=== PATIENT | female | born 1965 | race Two or more races ===

== ENCOUNTER → 2024-08-16 | Outpatient (CLI) | payer MEDICAID, SELFPAY ==
--- NOTE | 2024-08-16 13:00 | XR_ITS ---
Examination: Retroperitoneal ultrasound, complete Technique: Multiple high resolution grayscale images of the retroperitoneum obtained, including kidneys and bladder. Exam date and time:August 16, 2024 1308 hours INDICATIONS: History kidney stones flank pain months FINDINGS: Right kidney 10.8 x 7.4 x 7.1 cm cortex 1.7 cm Left kidney 10.8 x 4.9 x 7.2 cm renal cortex 2.0 cm Moderate bilateral renal parenchymal scar formation No hydronephrosis or renal calculi No bladder mass or bladder calculi bladder prevoid volume 82 cc IMPRESSION: Moderate bilateral renal parenchymal scar formation
== END | disposition home or self-care (01) ==
PROVIDERS: PCP Nurse Practitioner Family; Referring Provider Urology; Visit Provider Urology
DX: N28.89 Other specified disorders of kidney and ureter (principal)
CPT/HCPCS: 76770

== ENCOUNTER → 2025-01-28 | Outpatient (BNVA) | payer MEDICAID, SELFPAY | END | disposition home or self-care (01) | PROVIDERS: PCP Internal Medicine; Referring Provider Internal Medicine; Visit Provider Physician Assistant | DX: R10.9 Unspecified abdominal pain (principal); Z87.442 Personal history of urinary calculi; E11.9 Type 2 diabetes mellitus without complications; I10 Essential (primary) hypertension; E66.9 Obesity, unspecified; Z68.31 Body mass index [BMI] 31.0-31.9, adult; Z87.891 Personal history of nicotine dependence | CPT/HCPCS: 81003; 99212; G0463 ==

== ENCOUNTER → 2025-04-08 | Outpatient (CLI) | payer MEDICAID, SELFPAY ==
--- NOTE | 2025-04-08 14:15 | XR_ITS ---
Exam: MRI knee without contrast, right complete Date and time of exam: April 08, 2025, 1437 hours INDICATIONS: Right knee pain beginning one year ago joint clicking instability post injury Technique: Multiple axial, coronal, and sagittal sections on the knee have been obtained. T2-Weighted sagittal, fat-suppressed images, TR 3,500, TE 62, T2 weighted coronal fat-saturated images, TR 3,500, TE 62 Proton density sagittal sections, TR 1800, TE 31. T-1 weighted coronal images, TR 524, TE 13.0 Findings: Medial meniscus anterior horn intact. Medial meniscus, body is horizontal linear tear communicating inferior articular surface. Posterior horn medial meniscus horizontal linear tear communicating inner margin. Lateral meniscus anterior horn is intact Lateral meniscus, body is intact Posterior horn lateral meniscus is intact Anterior cruciate ligament moderately attenuated Posterior cruciate ligament appears intact. Knee effusion is small. Quadriceps and patellar tendons appear intact. There is no evidence of tendinosis. Inflammatory change or fracture of Hoffa's fat pad is not seen. Medial patellar facet demonstrates moderate thinning. Lateral patellar facet cartilage demonstrates moderate thinning. Trochlear cartilage demonstrates moderate thinning. Marrow signal adequate. Medial collateral ligament appears intact. No meniscocapsular separation is seen. Illiotibial band and fibular collateral ligament are intact. Biceps femoris tendons appear intact. Medial femoral condylar articular cartilage demonstrates severe thinning. Lateral femoral condylar articular cartilage demonstratesmoderate thinning. Tibial plateau cartilage demonstrates medial thinning. Impression: Horizontal linear tears body and posterior horn medial meniscus Moderate attenuation anterior cruciate ligament
== END | disposition home or self-care (01) ==
LOC: SMRI 13:54
PROVIDERS: PCP Student in an Organized Health Care Education/Training Program; Referring Provider Orthopaedic Surgery; Visit Provider Orthopaedic Surgery
DX: S83.241A Other tear of medial meniscus, current injury, right knee, initial encounter (principal); X58.XXXA Exposure to other specified factors, initial encounter; M25.861 Other specified joint disorders, right knee
CPT/HCPCS: 73721

== ENCOUNTER 2025-05-13 12:45 | Day surgery (SDC) | payer MEDICAID, SELFPAY ==
--- NOTE | 2025-05-09 09:26 | EKG_ITS ---
[facility] Test Date: 2025-05-09 Pat Name: VENUS KEITH Department: Room: - Gender: Female Field Recruiter: CAROLINE : 1965 Requested By: Paulino Juarez Order Number: [id number] Reading MD: Paulino Juarez Measurements Intervals [place] Rate: 63 P: 42 MT: 141 QRS: 23 QRSD: 88 T: 19 QT: 387 QTc: 397 Interpretive Statements SINUS RHYTHM No previous ECG available for comparison /[id number]/S0/[id number]
[2025-05-09 09:28] VITALS: BMI 30.4
[2025-05-09 09:40] VITALS: BMI 30.4
[2025-05-09 11:01] LABS: Basophils # (Auto) 0.1 Thou/mm3 (0.0-0.2); Basophils % (Auto) 1 % (0-2.5); Eosinophils # (Auto) 0.2 Thou/mm3 (0.0-0.5); Eosinophils % (Auto) 2 % (0-10); Hematocrit 44.4 % (36.0-46.0); Hemoglobin 14.3 g/dL (12.0-16.0); Immature Granulocytes Auto 0.04 Thou/mm3 (0.00-0.00); Lymphocytes # (Auto) 3.0 Thou/mm3 (1.0-4.8); Lymphocytes % (Auto) 39 % (10-50); Mean Corpuscular HGB Conc 32.2 g/dl (31.0-37.0); Mean Corpuscular Hemoglobin 28.8 pg (25.0-35.0); Mean Corpuscular Volume 89 fL (80-100); Monocytes # (Auto) 0.5 Thou/mm3 (0.0-0.8); Monocytes % (Auto) 7 % (0-12); Neutrophils # (Auto) 3.9 Thou/mm3 (1.8-7.7); Neutrophils % (Auto) 51 % (37-80); Nucleated Red Blood Cell # 0.00 Thou/mm3 (0.00-0.00); Nucleated Red Blood Cell % 0 /100 WBC (0); Platelet Count 253 Thou/mm3 (140-440); RDW Standard Deviation 44.9 fL (36.4-46.3); Red Blood Count 4.97 Miln/mm3 (4.00-5.20); White Blood Count 7.8 Thou/mm3 (3.6-11.0)
[2025-05-09 11:10] LABS: INR 1.0 (0.9-1.3); Partial Thromboplastin Time 25.4 Seconds (22.0-36.0); Prothrombin Time 10.5 Seconds (9.0-12.2)
[2025-05-09 11:12] LABS: Alanine Aminotransferase 32 U/L (10-49); Albumin, Serum 4.5 gm/dL (3.4-4.8); Albumin/Globulin Ratio 2.0 (1.2-2.2); Alkaline Phosphatase 108 U/L (46-116); Anion Gap 11 (7-16); Aspartate Amino Transferase 22 U/L (0-34); BUN/Creatinine Ratio 18 Ratio (12-20); Bilirubin,Total 0.6 mg/dL (0.3-1.2); Blood Urea Nitrogen 14 mg/dL (9-23); Calcium 10.7 mg/dL (8.3-10.6); Calcium (Corrected) 10.7 mg/dL (8.5-10.1); Carbon Dioxide 28.7 mMol/L (20.0-31.0); Chloride 106 mMol/L (98-107); Creatinine (Component) 0.8 mg/dL (0.6-1.3); Estimated Creatinine Clearance 79.6 mL/min (>60); Globulin 2.3 gm/dL (2.3-3.5); Glucose 94 mg/dL (74-106); Osmolality,Calculated 291 (275-295); Potassium 4.0 mMol/L (3.4-5.1); Sodium 146 mMol/L (136-145); Total Protein 6.8 gm/dL (5.7-8.2); eGFR > 60 See Note
--- NOTE | 2025-05-09 15:22 | SUR.PREOP ---
Cardiac records requested from Dr Tamez .....
[2025-05-13] VITALS (8 sets, daily range): BP systolic 111–135; BP diastolic 50–86; PULSE 47–86; RESP 12–19; TEMP 36.3–36.5; O2SAT 95–100; BMI 30.4
[2025-05-13] MEDS: SCOPOLAMINE 1 MG TDSY TOP (13:44)
--- NOTE | 2025-05-13 16:04 | PD.SUROPNT ---
Date of Procedure 05/13/25 Pre Op Diagnosis 1. Torn medial meniscus right knee joint 2. Torn lateral meniscus 3. DJD 4. Synovitis with medial plica Post Op Diagnosis Same Procedure 1. Partial medial meniscectomy 2 partial lateral meniscectomy 3 chondroplasty 4. Partial synovectomy including excision plica and shelf Findings Refer dictation Procedure Description The patient was given general endotracheal anesthesia. Once satisfactory anesthesia was achieved, tourniquet was placed on right upper thigh. Following that the part was thoroughly prepped and draped. After using Esmarch the tourniquet pressure was raised to 350 mmHg. A skin incision was made proximal to lateral tibial plateau and arthroscope was introduced in the usual fashion. Another a skin incision was made in suprapatellar pouch area and outlet was established. The findings were noted as below. In suprapatellar pouch area significant synovial tissue inflammation was present. Medial plica was present as well. The undersurface of patella showed grade 4 chondromalacia. The anterior femoral condyle showed grade 4 chondromalacia. Soft tissue impingement was present. The patellar tracking was checked and found to be good. The medial compartment showed grade 3/4 chondromalacia for medial tibial plateau and medial femoral condyle. Some areas of medial femoral condyle were denuded of cartilage consistent with grade IV chondromalacia. The medial meniscus showed degeneration and tear of the anterior horn and body Another skin incision was made proximal to medial tibial plateau and a probe was introduced and findings were confirmed. The anterior cruciate ligament was intact. The anterior drawer test was performed and found to be good. With the help of probe integrated was tested and found to be good The lateral compartment showed grade III/IV chondromalacia lateral femoral condyle and tibial plateau. Lateral meniscus showed degeneration anterior of the body and anterior horn. A shaver was introduced and shaving of the anterior horn of medial meniscus was performed. Soft tissue impingement was shaved off. Chondroplasty of the medial femoral condyle and medial tibial plateau was performed. A basket was introduced and torn part of the body of the lateral meniscus was excised. The shaving of the body and anterior horn of lateral meniscus was done. The chondroplasty of the patella and and anterior femoral condyle was performed. The soft tissue impingement was shaved off. A partial synovectomy including excision of plica was performed. Copious amount of irrigation was used to irrigate the knee joint. All the debris were removed. 3-0 Prolene was used to close the wound. About 20 mL of quarter percent Marcaine along with 10 mg of Duramorph was injected. Patient tolerated procedure well. Estimated blood loss was about 5 mL. Prognosis in this case is guarded. Because of significant chondromalacia there is a possibility patient may continue having short and or long-term pain. In that case patient may need knee replacement and patient is fully aware of that. Patient was taken to the recovery room in good condition. Anesthesia GETA Pathology / specimen None Estimated Blood Loss 1 Surgeon Paulino Romero MD Surgical Staff Operation Date: 05/13/25 14:45 <No data on this case meets the specified criteria>
--- NOTE | 2025-05-13 16:08 | SUR.PHASEI ---
1608: Pt. wakes to name then drifts back to sleep, vitals stable, breathing unlabored, no complaint of pain or nausea, dressing to right knee CDI, no active bleed noted, pt. able to moved bilateral feet, bilateral dorsalis pedis pulses strong and regular, cap refill to bilateral feet less than 3 seconds, report received from Chirag NAIK and MD Gomez
--- NOTE | 2025-05-13 16:17 | ESHP_ITS ---
RE: VENUS KEITH : 1965 DATE OF ADMISSION: 05/13/2025 The patient came to my office on 05/08/2025 for detailed preop history and physical examination. HISTORY OF PRESENT COMPLAINT: The patient got pain in the right knee joint. Pain is quite bad. The patient graded intensity of pain to be 10/10. Unable to walk. The patient stated that pain keeps her awake at night. Basically, her quality of life and activities of daily living is affected, unable to walk more than 1 or 2 blocks. PAST MEDICAL HISTORY: The patient has history of diabetes mellitus and high blood pressure. No history of asthma, seizures, chest pain, myocardial infarction, or bleeding disorder. PAST SURGICAL HISTORY: Include cholecystectomy, tonsillectomy, and . DRUG HISTORY: The patient is on, 1. Atorvastatin. 2. Jardiance. 3. Vitamin D2. 4. Losartan. 5. Ozempic. ALLERGIES: NIL KNOWN. FAMILY HISTORY AND SOCIAL HISTORY: The patient denies smoking, drinking and is retired. PHYSICAL EXAMINATION: General: Normal built lady. Vital Signs: Pulse 82 per minute, blood pressure is 136/84. Neck: Soft, supple. No mass felt. Trachea is centrally placed. Cardiovascular System: First and second heart sound normal. No murmur heard. Respiratory System: Bilateral vesicular breath sounds. Chest: Clear. Abdomen: Soft. No mass felt. Bowel sounds present. Breast: Examination not indicated in this case. The patient is advised to see the family physician for regular examination. Extremities: Right knee examination reveals 1+ swelling. There is 2+ tenderness. There is genu varum deformity. Active range of motion 0 to 115 degrees of flexion. Patellofemoral crepitus is present. The patient walks with a limp. DIAGNOSTIC DATA: MRI scan confirmed torn meniscus with DJD and synovitis with increased joint pain. ASSESSMENT AND PLAN: Since the patient is symptomatic, therefore, right knee arthroscopy was discussed and advised. Detailed discussion took place. Procedures were explained with the help of knee model and posters. All questions were answered. Risks with anesthesia was explained and that includes, but not limited to reaction to anesthetic agents, cardiac arrest, rarely it might be fatal. Risk with operations includes infection and if that happens, the patient may need further surgical procedure. Other risks include deep vein thrombosis, pulmonary embolism, which rarely might be fatal. Sometimes rare complications happen and that includes possible compartment syndrome, possible damage to nerve, etc and if that happens, that has to be taken care of. No guarantee is given regarding outcome of the procedure and/or pain relief. Indeed, if one finds grade 3 and/or grade 4 chondromalacia, there is a possibility that the patient may continue having short and long-term pain and if the pain is quite bad, the patient may be a candidate for knee replacement and the patient is fully aware of that. The patient is cleared for surgical procedure. Surgery booked for 05/13/2025 in [place]. DT: 15:32:28 TT: 16:16:00 Ref: [id number] - TID: [id number]
[2025-05-13] MEDS: ONDANSETRON INJ 2 MG/ML INJ 2 ML 4 MG IVP (16:20)
[2025-05-13] MEDS: MORPHINE SULF INJ 10 MG/ML VIAL 3 MG IVP ×2 (16:24→16:30)
[2025-05-13] MEDS: fentaNYL CIT INJ 50 mCg/ML AMP 2ML 25 MCG IVP ×2 (16:45→16:51)
--- NOTE | 2025-05-13 17:20 | SUR.PHASEII ---
1720: Pt. AAOx4,vitals stable, breathing unlabored, no complaint of pain or nausea, dressing to right knee CDI, no active bleed noted, pt. tolerated sips of water well, pt. ambulated to wheelchair with steady gait and no assist, no complications. Gave discharge instructions to the pt. and her ride, both verbalized understanding and had no further questions. Pt. left with all personal belongings.
== END 2025-05-13 17:20 | disposition home or self-care (01) ==
PROVIDERS: Anesthesiology; PCP Student in an Organized Health Care Education/Training Program; Referring Provider Orthopaedic Surgery; Visit Provider Orthopaedic Surgery
PROC: (CPT 29870; principal; 2025-05-13 14:30)
DX: S83.241A Other tear of medial meniscus, current injury, right knee, initial encounter (principal); S83.289A Other tear of lateral meniscus, current injury, unspecified knee, initial encounter; M67.51 Plica syndrome, right knee; M17.11 Unilateral primary osteoarthritis, right knee; M22.41 Chondromalacia patellae, right knee; M26.81 Anterior soft tissue impingement; M65.861 Other synovitis and tenosynovitis, right lower leg; Z01.810 Encounter for preprocedural cardiovascular examination
CPT/HCPCS: 29880; 36415; 80053; 85025; 85610; 85730; 93005; A4217; A4649; J0131; J0690; J1100; J1885; J2250; J2270; J2405; J2704; J3010; A9270

== ENCOUNTER 2025-07-31 08:45 | Outpatient (RCR) | payer MEDICAID, SELFPAY ==
--- NOTE | 2025-07-31 08:56 | PTNOTE_ITS ---
PT OP Initial Eval Patient Information Outpatient Physical Therapy Treatment Date: 07/31/25 Visit Reasons: right knee surgery Medical Diagnosis: M23.91 Treatment Dx #1: R knee pain Date of Onset: 05/13/25 Smoking Status Smoking Status: Never smoker Initial Assessment Subjective: Pt is 59 yr old female s/p R knee A/S. Pt reports pain with stepping up and squatting and she is ambulating without assistive device. Increzased pain after HH chores. PMH: HTN, DM, allergies, tonsillectomy Pt goal: to get rid of the pain Objective: R knee AROM: ? Flexion: 120 deg ? Extension: full ? PROM: 85 deg flexion ? SLR: 85 deg with slight extensor lag ? Strength: R quads 3/5 limited by patella compression pain, hamstrings 4/5 ? Antalgic gait pattern with decreased stance time on R Assessment: Pt presentation consistent with post op R knee A/S with decreased ROM, ? strength and WB tolerance. Pt ambulates with decreased WB on R. Pt requires skilled therapy in order to improve strength and ROM and has good rehab potential with attainable functional improvement. Eval followed by HEP with ?materials. 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 Independent with HEP ? 2. Improved quad and hamstring strength to 4+/5 ? 3. Improved ambulatory tolerance to community distances with symmetrical ? gait pattern. Treatment Plan ? 1. Manual therapy ? 2. Therex ? 3. Modalities as indicated, moist heat, ice, estim Frequency and Duration: 2x a week for 6 weeks Certification Dates: 07/31/25 to 10/29/25 Procedure Charges OP PT Eval Mod Complex 30 minutes: Yes
== END 2025-08-10 23:59 | disposition home or self-care (01) ==
LOC: CPTX 08:45
PROVIDERS: PCP Student in an Organized Health Care Education/Training Program; Referring Provider Student in an Organized Health Care Education/Training Program; Visit Provider Student in an Organized Health Care Education/Training Program
DX: M25.561 Pain in right knee (principal); M23.91 Unspecified internal derangement of right knee; Z98.890 Other specified postprocedural states; I10 Essential (primary) hypertension; E11.9 Type 2 diabetes mellitus without complications
CPT/HCPCS: 97162

== ENCOUNTER 2025-08-12 09:09 | Outpatient (RCR) | payer MEDICAID, SELFPAY ==
--- NOTE | 2025-08-12 18:02 | PT.ODAYNRPT ---
PT Outpatient Daily Note OP Daily Note Outpatient Physical Therapy Treatment Date: 08/12/25 Visit Reasons: RT knee surgery Subjective: The R knee is sore attributed to going up and down steps Objective: See F/S for therex Assessment: Pt able to step up with some R knee pain Plan: Continue per POC Length of Time (minutes) of Treatment: 30 Minutes Procedure Charges Therapeutic Exercise 30 minutes: Yes
== END 2025-09-10 23:59 | disposition home or self-care (01) ==
LOC: CPTX 09:09
PROVIDERS: PCP Student in an Organized Health Care Education/Training Program; Referring Provider Student in an Organized Health Care Education/Training Program; Visit Provider Student in an Organized Health Care Education/Training Program
DX: Z47.89 Encounter for other orthopedic aftercare (principal); M25.561 Pain in right knee; M23.91 Unspecified internal derangement of right knee; Z98.890 Other specified postprocedural states; I10 Essential (primary) hypertension; E11.9 Type 2 diabetes mellitus without complications
CPT/HCPCS: 97110